=== PATIENT | female | born 1990 | race Caucasian/White ===

== ENCOUNTER 2022-07-04 14:02 | Outpatient (CLI) | payer BC, SELFPAY ==
--- NOTE | 2022-07-04 14:00 | CRLHL7_ITS ---
For Patients: As a result of the Cures Act, medical imaging exams and procedure reports are released immediately into your electronic medical record. You may view this report before your referring provider. If you have questions, please contact your health care provider. INDICATION: Evaluate size and dates TECHNIQUE: Ultrasound OB pelvis transvaginal. Real time neal scale imaging of the pelvis was performed. COMPARISON: None FINDINGS: Sonographic imaging demonstrates a single living intrauterine gestation. The embryo demonstrates a regular cardiac rate measuring 74 beats per minute. The embryo`s crown rump length measurement of 3.1 cm corresponds to a gestational age of 10 weeks 0 days with a sonographic due date of 01/30/2013. There is a normal appearing yolk sac. There are no gross abnormalities noted within the embryo at this early state of development. The placenta has not yet developed. The gestational sac has a normal appearance. 1.9 centimeter x 1.1 centimeter x 2.8 cm subchorionic hemorrhage the amount of fluid within the sac appears appropriate for gestational age. The cervix is closed. The myometrium appears normal. The ovaries are of normal size. There are no suspicious fluid collections noted in the cul-de-sac. IMPRESSION: Viable intrauterine . Gestational age calculated at 10 weeks 0 days with a sonographic due date of measurements consistent with. 1.9 centimeter x 1.1 centimeter x 2.8 centimeter subchorionic hemorrhage Dictated by Humphrey Schilling MD @ 07/04/2022 8:42:27 PM (Electronically Signed)
== END 2022-07-04 14:03 | disposition home or self-care (01) ==
LOC: US 14:04
PROVIDERS: PCP Family Medicine; Visit Provider Advanced Practice Midwife
DX: Z34.91 Encounter for supervision of normal pregnancy, unspecified, first trimester (principal); O20.9 Hemorrhage in early pregnancy, unspecified; Z3A.10 10 weeks gestation of pregnancy
CPT/HCPCS: 76817; 86592; 86703; 86762; 86787; 86803; 86850; 86900; 86901; 87086; 87340; 87491; 87591

== ENCOUNTER 2022-07-04 15:33 | Outpatient (CLI) | payer BC, SELFPAY ==
[2022-07-04 20:59] LABS: Hepatitis B Surface Antigen* Negative (Negative)
[2022-07-04 21:10] LABS: HIV 1/2/P24 Combo Screen* Negative (Negative)
[2022-07-04 21:16] LABS: Hepatitis C Virus Antibody* Negative (Negative)
[2022-07-04 22:15] LABS: Chlamydia DNA Amplified* NOT DETECTED (No Detected); GC DNA Amplified* NOT DETECTED (No Detected)
[2022-07-06 23:44] LABS: Varicella-Zoster Virus Ab, IgG >4000.0 IV
[2022-07-07 01:42] LABS: Rapid Plasma Reagin (RPR) Non Reactive (Non Reactive)
== END 2022-07-04 15:34 | disposition home or self-care (01) ==
PROVIDERS: PCP Family Medicine; Visit Provider Advanced Practice Midwife
DX: Z34.91 Encounter for supervision of normal pregnancy, unspecified, first trimester (principal)
CPT/HCPCS: 86592; 86703; 86762; 86787; 86803; 86850; 86900; 86901; 87086; 87340; 87491; 87591

== ENCOUNTER 2022-09-18 12:04 | Outpatient (CLI) | payer BC, SELFPAY ==
--- NOTE | 2022-09-18 12:15 | CRLHL7_ITS ---
For Patients: As a result of the Century Cures Act, medical imaging exams and procedure reports are released immediately into your electronic medical record. You may view this report before your referring provider. If you have questions, please contact your health care provider. INDICATION: Evaluate anatomy. COMPARISON: 07/04/2022 TECHNIQUE: Real time neal scale imaging of the fetus was performed as well as color Doppler analysis of the umbilical vessels. FINDINGS: Sonographic imaging demonstrates a single living intrauterine gestation. Fetus demonstrates a regular cardiac rate of 150 beats per minute. Fetus has a variable position. The placenta lies posteriorly without evidence of placenta previa. The edge of the placenta is located 5.1 cm from the internal cervical os. Amniotic fluid volume appears normal. Single deepest vertical pocket: 4.6 cm. The cervix is closed and measures 3.9 cm in length. The composite ultrasound gestational age is calculated at 20 weeks 6 days with an estimated sonographic due date of 01/30/2023. The estimated weight is 406 grams which lies at the 64th %. The following biometric measurements were obtained: Biparietal diameter: 4.8 cm/20 weeks 3 days 33rd% Head circumference: 17.8 cm/20 weeks 2 days 18th% Abdominal circumference: 16.9 cm/21 weeks 6 days 75th% Femur length: 3.4 cm/20 weeks 5 days 37th% The HC/AC ratio measures: 1.06 range (1.06-1.25) On anatomic survey, there is a normal appearance of the cerebral ventricles, cavum septi pellucidi, cisterna magna and cerebellum. The nose, lips, and facial profile appear normal. The cervical, thoracic and lumbar spine are well visualized and appear normal. There is a normal four-chamber heart view and the left and right ventricular outflow tracts appear normal. The diaphragm and stomach appear normal. The kidneys and bladder also appear normal. There is a normal three-vessel cord and cord insertion site. The four extremities appear normal. IMPRESSION: Normal OB ultrasound exam with concordance of clinical and sonographic dating. No intrinsic abnormalities noted on anatomic survey. Dictated by Humphrey Guajardo MD @ 09/19/2022 10:37:10 AM (Electronically Signed)
== END 2022-09-18 12:05 | disposition home or self-care (01) ==
LOC: US 12:05
PROVIDERS: PCP Family Medicine; Visit Provider Advanced Practice Midwife
DX: Z34.92 Encounter for supervision of normal pregnancy, unspecified, second trimester (principal); Z3A.20 20 weeks gestation of pregnancy
CPT/HCPCS: 76805

== ENCOUNTER 2023-01-04 08:20 | Outpatient (CLI) | payer BC, SELFPAY ==
[2023-01-05 13:18] LABS: Strep B DNA Probe NEGATIVE (Negative)
[2023-01-05 13:33] LABS: Strep B Pen/Amox Allergy No
== END 2023-01-04 08:21 | disposition home or self-care (01) ==
LOC: NFLDREF 08:20
PROVIDERS: PCP Family Medicine; Visit Provider Advanced Practice Midwife
DX: Z34.93 Encounter for supervision of normal pregnancy, unspecified, third trimester (principal); Z3A.36 36 weeks gestation of pregnancy
CPT/HCPCS: 87081; 87653

== ENCOUNTER 2023-01-23 05:05 | Inpatient (IN) | payer BC, SELFPAY ==
[2023-01-23] VITALS (23 sets, daily range): BP systolic 100–167; BP diastolic 66–126; PULSE 74–114; RESP 16–17; TEMP 36.4–37.2; O2SAT 97–99; BMI 37.9
[2023-01-23] MEDS: LACTATED RINGERS 1000 ML 1,000 ML 999 ML IV (05:30)
[2023-01-23 05:34] LABS: Basophils Absolute Auto 0.03 K/uL (0.00-0.30); Basophils Percent Auto 0.3 % (0.0-3.0); Eosinophils Absolute Auto 0.13 K/uL (0.00-0.50); Eosinophils Percent Auto 1.3 % (0.0-7.0); Hematocrit 35.7 % (33.0-51.0); Hemoglobin* 12.1 gm/dL (12.0-16.0); Immature Granulocytes Abs Auto 0.05 K/uL (0.00-0.30); Immature Granulocytes Pct Auto 0.5 %; Lymphocytes Percent Auto 22.7 % (20-44); Mean Corpuscular HGB Conc 34 gm/dL (32-36); Mean Corpuscular Hemoglobin 32 pg (26-34); Mean Corpuscular Volume 93 fL (80-100); Monocytes Percent Auto 9.8 % (0.0-11.0); Neutrophils Absolute Auto 6.34 K/uL (1.7-7.0); Neutrophils Percent Auto 65.4 % (42.0-72.0); Platelet Count* 177 K/uL (140-440); RDW Coefficient of Variation % 12.2 % (11.5-15.5); Red Blood Count 3.83 m/uL (4.00-5.20)
[2023-01-23 05:43] LABS: Slide Review Reflex No
[2023-01-23] MEDS: LACTATED RINGERS 1000 ML 1,000 ML IV (06:47)
--- NOTE | 2023-01-23 07:23 | P.LDBA_ITS ---
Subjective History of Present Illness Narrative: Patient is being admitted to Labor and Delivery for repeat delivery. She is a 32 year old at 39 weeks gestation. Specific Issues/Plans Spouse: Calvin. Daughter: Amado. Baby: Boy! Saul 1. Previous section, planning repeat (PCS for arrest of dilation and chorio), prefers NDP for repeat c/s * Surgical request submitted on 12/25/22 for RLTCS on 01/23/23 w/ NDP 2. Asthma, albuterol PRN 3. Multiple Mood Disorders: OCD, ADHD, Anxiety/Depression - seeing Dr. Vega for med management and therapy * Previous records indicate psych hx much more involved than pt implied, including hx of suicide attempt/overdose with tramadol, abusing her prescription medication (Previous ADHD meds switched to patch form so it could not be abused), and heavy alcohol use. 4. IBS 5. Hx of Alcohol Dependence and THC use, remote per pt, denies current use 6. Hx of Abuse, not current 7. Hx GDM -diet controlled (last 1hr GTT was 242) * HgbA1c: 5.2 at NOB * 20wk GTT: 116 * 28 week GTT: 135 8. Ringworm right breast 12/07/2022 * Antifungal cream twice daily * 12/15: Multiple spots on breasts bilaterally and on her abdomen, suspect pityriasis rosea. Discussed with MFM, recommend derm appointment to confirm * Derm said PUPPS 9. Mild anemia: 12/25/2022 at 34 weeks 6 days: hgb 10.8 * Start ferrous sulfate 1 tab p.o. every other day with food. 10. Pupps per patient, dx by Dermatology Managing with creams, hydrocortisone has worked the best COVID: vaccinated Flu: Tdap: 11/20/22 Her full history and physical was dictated by Dr. Serna on 01/10/2023. She reports no changes. Please see this for details. OB - Problem Based A/P Additional Plan (1) Previous delivery affecting : Status: Acute Plan Repeat delivery today. Delivery/Labor/Induction Plan Plan: Section OB Exam Physical Exam Vital signs: Temp Pulse BP Pulse Ox 98.9 F 82 122/82 99 01/23/23 05:20 01/23/23 05:19 01/23/23 05:19 01/23/23 05:20 Narrative: General: Pleasant, no acute distress Heart: Regular rate and rhythm, no murmur or gallop Lungs: Clear to auscultation bilaterally Abdomen: Soft, nontender, gravid, cephalic lie
[2023-01-23] MEDS: CEFAZOLIN 1 GM inj 3 GM IVP (07:30)
[2023-01-23] MEDS: KETOROLAC 30 MG/ML inj IVP ×3 (07:54→19:59)
[2023-01-23] MEDS: LACTATED RINGERS 1000 ML 1,000 ML 125 ML IV ×2 (07:55→09:30)
--- NOTE | 2023-01-23 08:00 | SUR.OPER ---
Surgeon denied offer to send the placenta/specimen.
--- NOTE | 2023-01-23 08:18 | PM.OBPRCCS ---
Procedure Date of procedure: 01/23/23 Pre-op diagnosis: 1. 39 weeks gestation. 2. Previous , desires repeat Post-op diagnosis: same Procedure Done: Global Will [facility] bill your pro fee for this procedure?: Yes Blood Loss Measurement Type: QBL (396) Bakri Used: No IV fluids (mL): 2,000 Surgeon: Dr. Sarina Arnold MD Hay Buckler: GAB Jerry Anesthesia type: Spinal Findings: 1. Male infant, cephalic presentation, Apgars of 6 and 8, weight 8 lb, 1 oz 2. Focal filmy adhesions of serosa and right lower uterine segment. Otherwise normal appearance to uterus, bilateral tubes and ovaries. Procedure Description: Patient was taken to the operating room with IV running. She received cefazolin in preoperative prophylaxis. Spinal anesthesia had previously been administered. Noel catheter was inserted. She was prepped and draped in the usual sterile fashion. Anesthesia was tested and found to be adequate. A low-transverse skin incision was made with a scalpel and carried through to the underlying layer of fascia with the scalpel. The subcutaneous fat was dissected off the underlying fascia with Bovie. The fascia was nicked in the midline with a scalpel, and this incision was extended laterally with scissors. The rectus muscles were in the midline. There were dissected bluntly off the underlying rectus muscles, and sharply in the midline. Peritoneum was identified and entered bluntly. Bovie was used to widen this opening laterally. Howie O retractor was inserted and tightened down, providing excellent visualization of the lower uterine segment. The serosal adhesion along the right lower uterine segment was lysed with Bovie. The bladder reflection was found to be well below the planned site for hysterotomy. Low-transverse uterine incision was made with a scalpel. Incision was widened bluntly. The infant's head was grasped through the hysterotomy and delivered with the help of fundal pressure. The remainder of the body delivered without incident. Cord was clamped and cut after 30 seconds. was handed off to attending nurses. The placenta was delivered manually after traction on the cord did not result in placental delivery. The uterus was cleaned of all clots and debris with the dry lap pad. The hysterotomy was reapproximated with 0 Vicryl in a running, locked fashion. The adnexa were examined and noted to be normal in appearance. The cul-de-sac and gutters were cleansed with dampened laparotomy sponge, removing any further clots and debris. The Howie O retractor was removed. The hysterotomy was reexamined and found to be hemostatic. The peritoneum was reapproximated with 2 0 Vicryl in a running fashion. The rectus muscles were examined and found to be hemostatic. The fascia was reapproximated with 0 Vicryl in a running fashion. Subcutaneous fat was irrigated and Bovie used on oozing vessels. The subcutaneous fat was reapproximated with 2 0 plain gut suture in an interrupted fashion. The skin was closed with a subcuticular stitch of 4-0 Monocryl. Surgical glue was applied above this. Patient tolerated procedure well was taken to recovery area in stable condition. Complications: None Condition: stable Disposition: floor [place] Infant total score - 1 minute: 5 total score - 5 minute: 6 total score - 10 minute: 8
--- NOTE | 2023-01-23 08:52 | W.ANESCHARGE ---
Anesthesia Charges Start Date/Time Anesthesia Start Date: 01/23/23 Anesthesia Start Time: 07:20 Stop Date/Time Anesthesia Stop Date: 01/23/23 Anesthesia Stop Time: 08:34
--- NOTE | 2023-01-23 10:12 | W.PM.NB ---
Nerve Block Nerve Block Time Seen by Provider: : Date Seen: 01/23/23 Type of block requested by surgeon for post-operative analgesia: TAP Side: bilateral Time out performed: Yes Verification of patient name: Yes Verification of date of : Yes Site marking: site marked Name of person performing procedure: Lucero Gonsales Continuous monitoring Was continuous monitoring of O2 sat, B/P, clinical research monitor, recorded every 15 minutes?: Yes Procedure Checklist: sterile prep, needles and gloves Ultrasound guided. Images saved: Yes Medications given in 5ml increments after negative aspiration: Marcaine %: 0.25 mL: 30 and Exparel mL: 10 Patient tolerated procedure well: Yes Block Charges Block Charge (with Pro Fee): TAP Bilateral Use of Ultrasound Machine for Block: Yes- US Guidance/pain block
[2023-01-23] MEDS: ACETAMINOPHEN 500 MG TABLET 1000 MG PO ×2 (13:00→19:13)
[2023-01-23] MEDS: diphenhydrAMINE 50 MG/ML inj 12.5 MG IVP (13:00)
[2023-01-24] VITALS (13 sets, daily range): BP systolic 113–125; BP diastolic 77–81; PULSE 72–86; RESP 16–18; TEMP 36.5–36.9; O2SAT 97–100
[2023-01-24] MEDS: ACETAMINOPHEN 500 MG TABLET 1000 MG PO ×4 (01:02→19:21)
[2023-01-24] MEDS: KETOROLAC 30 MG/ML inj IVP ×2 (02:01→08:23)
[2023-01-24 07:19] LABS: Hemoglobin* 10.8 gm/dL (12.0-16.0)
[2023-01-24] MEDS: DOCUSATE SODIUM 100 MG CAPSULE PO (08:24)
[2023-01-24] MEDS: OXYCODONE 5 MG TABLET PO ×4 (09:52→22:46)
[2023-01-24] MEDS: IBUPROFEN 600 MG TABLET PO ×2 (14:08→20:36)
--- NOTE | 2023-01-24 15:10 | P.OBPN_ITS ---
OB - PN:Subj Subjective Date Seen: 01/24/23 Patient comments OB post-: no complaints, pain well controlled, tolerating diet and flatus present [place] status: and doing well [place] feeding status: exclusively Narrative: The patient feels well.? The pain is well controlled with current medications.? She has no new complaints.? Urinary output is adequate and she is voiding w ithout difficulty.? Has a good appetite, is tolerating a general diet, is passing flatus, and has not had a bowel movement.? Has scant amount of rubra lochia.? She is ambulating well.? OB - PN: Obj Exam Physical Exam: Vital signs: Temp Pulse Resp BP Pulse Ox O2 Del Method 97.7 F 86 16 125/78 97 Room Air 01/24/23 13:03 01/24/23 13:03 01/24/23 13:03 01/24/23 13:03 01/24/23 13:03 01/24/23 13:03 Narrative: GENERAL APPEARANCE:? normal affect, alert, no distress? MOOD:? appropriate? CHEST:? clear to auscultation and percussion? HEART:? regular rate and rhythm? ABDOMEN:? soft, non-tender the uterine fundus is 2 cm Below Umbilicus, Midline and is appropriate for the stage of recovery. Incision well approximated without edema, redness, warmth, or drainage. Glue closure intact.? EXTREMITIES:? normal and no edema? Urinary Catheter Management: Urethral: Cath placed during this visit: yes, but has since been removed by the nurse Reason for continuing: surgical procedure Insertion date: 01/23/23 Insertion time: 07:34 Removal date: 01/23/23 Removal time: 14:11 OB - PN: Obj Data Labs Labs: Laboratory Results - last 24 hr 01/24/23 06:54 Hgb 10.8 L OB - PN: A/P Delivery Assessment and Plan (1) Previous delivery affecting : Status: Acute (2) Lactating mother: Status: Acute (3) care following delivery: Status: Acute Plan day: 1 Plan: routine care Comments: Anticipate discharge home tomorrow or the next day per patient preference.
[2023-01-24] MEDS: LANOLIN CREAM 1 APPLIC TOPICAL (19:47)
[2023-01-25] MEDS: ACETAMINOPHEN 500 MG TABLET 1000 MG PO ×2 (01:21→07:41)
[2023-01-25 02:16] VITALS: BP 118/82; PULSE 68; RESP 16; TEMP 36.5; O2SAT 98
[2023-01-25] MEDS: OXYCODONE 5 MG TABLET PO ×2 (04:01→08:46)
[2023-01-25] MEDS: IBUPROFEN 600 MG TABLET PO (04:02)
--- NOTE | 2023-01-25 07:23 | PM.OBDSVD1 ---
DS: Providers Provider Time Seen by Provider: : Date Seen: 01/25/23 Date of admission: 01/23/23 05:05 Primary care physician: Kimberly Lord MD Admitting Clinician: Sarina Arnold MD Attending Physician on discharge: Sarina Arnold MD Date of Discharge: 01/25/23 DS: Diagnosis Discharge Diagnosis (1) care following delivery: Status: Acute (2) Lactating mother: Status: Acute (3) History of panic attacks: Status: Acute (4) History of suicide attempt: Status: Acute (5) History of substance use disorder: Status: Acute (6) Generalized anxiety disorder: Status: Chronic (7) Depression: Status: Chronic Problem details: Hx OD. 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 ?Afebrile GENERAL APPEARANCE: ?normal affect, alert, no distress MOOD: ?appropriate HEENT: normocephalic, neck supple, full ROM CHEST: ?Symmetrical chest wall movement. ?Normal respiratory effort. ?Clear to auscultation HEART: ?regular rate and rhythm ABDOMEN: ?soft, non-tender. Uterine fundus is firm, at Umbilicus, Midline and is appropriate for the stage of recovery. ?Bowel sounds present. EXTREMITIES: ?normal and trace edema SKIN: warm, dry. ? ?Incision clean/dry/well approximated. ?No signs of infection noted. Const: Vital Signs, click to edit/add: Vital Signs - 24 hr 01/24/23 07:30 01/24/23 08:00 01/24/23 13:03 Temperature 97.9 F 97.7 F Pulse Rate [Pulse Oximeter] 84 86 Respiratory Rate 18 18 16 Blood Pressure [Ri ght Arm] 118/77 125/78 Pulse Oximetry 99 97 Oxygen Delivery Me thod Room Air Room Air 01/24/23 19:33 01/25/23 02:16 Temperature 98.2 F 97.7 F Pulse Rate [Pulse Oximeter] 72 68 Respiratory Rate 16 16 Blood Pressure [Ri ght Arm] 117/81 118/82 Pulse Oximetry 100 98 Oxygen Delivery Me thod Room Air Room Air OB - DS: Summary Hospital Course Hospital Course: Travis is a 32 y.o. G 2 P 2 who was admitted to L & D for repeat . ?She had an uncomplicated . ? The patient feels well. ?The pain is well controlled with current medications. ?She has no new complaints. ?She is breast feeding and reports things are going well.? the patient has done well.? Vitals have been stable.? She has remained afebrile.? Has a good appetite, is tolerating a general diet. ?She is voiding without difficulty.? She is passing gas and has had a bowel movement.? She is ambulating and denies any dizziness.? Has Small amount of rubra lochia. She is planning mini pill for prevention. Problems: none plan: Discharge home with baby. Follow up in 2 weeks and 6 weeks. , may follow up with if needed Peripartum Data Infant delivery method: Repeat Section Procedures: Procedures Operation Date: 01/23/23 07:15 Actual Procedure Side Surgeon p Repeat Section Sarina Arnold MD complications: none Infant Gender: Male Discharge Plan: Home Status at Discharge Functional status at discharge: independent ambulation Overall status at discharge: patient is progressing back to baseline Time Spent with Patient Time attestation: Total time spent providing and/or coordinating discharge services: Time spent: Less than 30 minutes Discharge Plan Discharge Disposition: Home, Self-Care Date of Admission: 01/23/23 05:05 Attending Provider on Discharge: Luciana Myrick Primary Care Provider: Kimberly Lord Condition: Stable Anticipated Discharge Date/Time: 01/25/23 10:00 Discharge Medications: New docusate sodium 100 mg Capsule 100 mg PO BID PRNQty: 100 0RF Rx Instructions: Take 1 cap 1-2 times a day as needed for constipation ibuprofen 600 mg Tablet 600 mg PO Q6H PRN (Reason: Pain) Qty: 60 0RF oxycodone 5 mg Tablet 5 - 10 mg PO Q4H PRN (Reason: Pain) Qty: 20 0RF Continued vilazodone [Viibryd] 40 mg tablet 40 mg PO QDAY Rx Instructions: must administer with a meal/food DHA 200 mg capsule 200 mg PO DAILY cholecalciferol (vitamin D3) 75 mcg (3,000 unit) tablet 75 mcg PO QDAY PRN metoclopramide HCl [Reglan] 10 mg tablet 10 mg PO Q6H PRN (Reason: headaches) Qty: 60 0RF Rx Instructions: Take at onset of headaches with Tylenol. If minimal improvement after 6 hours, may take another dose. albuterol sulfate 90 mcg/actuation HFA aerosol inhaler 1 puff inhalation Q4-6H PRN (Reason: shortness of breath or wheezing) Qty: 8.5 0RF Discontinued ferrous sulfate [Feosol] 325 mg (65 mg iron) tablet 325 mg PO Q OTHER DAY Discharge Orders: Discharge Order (Routine); Ordered 01/25/23 Ordered By: Luciana Myrick Patient Education: OB Over the Counter Medication Information, OB /Breast Feeding Additional Instructions: Follow up in 2 weeks and 6 weeks Activity Level: Activity as Tolerated Discharge Diet: Regular Follow Up Appointments: Kimberly Lord MD [Primary Care Provider] - Forms: [facility] Info Instructions
[2023-01-25 07:49] VITALS: BP 117/83; PULSE 80; RESP 16; O2SAT 98
== END 2023-01-25 10:50 | disposition home or self-care (01) | DRG 540 ==
PROVIDERS: Admitting Provider Obstetrics & Gynecology; PCP Family Medicine; Visit Provider Obstetrics & Gynecology
PROC: 10D00Z1 Extraction of Products of Conception, Low, Open Approach (ICD-10-PCS; CPT 59514; principal; 2023-01-23 07:15)
DX: O34.211 Maternal care for low transverse scar from previous cesarean delivery (principal); O24.420 Gestational diabetes mellitus in childbirth, diet controlled; O99.344 Other mental disorders complicating childbirth; F41.1 Generalized anxiety disorder; F41.8 Other specified anxiety disorders; F42.9 Obsessive-compulsive disorder, unspecified; F90.9 Attention-deficit hyperactivity disorder, unspecified type; Z91.51 Personal history of suicidal behavior; F10.21 Alcohol dependence, in remission; O26.86 Pruritic urticarial papules and plaques of pregnancy (PUPPP); J45.909 Unspecified asthma, uncomplicated; Z3A.39 39 weeks gestation of pregnancy; Z37.0 Single live birth; G89.18 Other acute postprocedural pain
CPT/HCPCS: 01961; 36415; 64488; 76942; 85018; 85025; 86850; 86900; 86901; A9270; C9290; J0665; J0690; J1200; J1885; J2274; J2371; J2405; J2590; J7120

== ENCOUNTER 2023-02-26 13:39 | Outpatient (CLI) | payer BC, SELFPAY | END 2023-02-26 13:40 | disposition home or self-care (01) | LOC: NFLDREF 02-28 01:59 | PROVIDERS: PCP Family Medicine; Referring Provider Family Medicine; Visit Provider Nurse Practitioner Family | DX: Z79.899 Other long term (current) drug therapy (principal) | CPT/HCPCS: 80053; 82306; 84443 ==

== ENCOUNTER 2023-03-07 11:39 | Outpatient (CLI) | payer SELFPAY | END 2023-03-07 11:40 | disposition home or self-care (01) | LOC: NFLDREF 11:40 | PROVIDERS: PCP Family Medicine; Visit Provider Registered Nurse | DX: Z39.2 Encounter for routine postpartum follow-up (principal) | CPT/HCPCS: 87086 ==

== ENCOUNTER 2023-11-15 07:30 | Outpatient (RCR) | payer BC, SELFPAY | END 2023-12-18 09:48 | disposition home or self-care (01) | PROVIDERS: PCP Family Medicine; Visit Provider Family Medicine | DX: M54.9 Dorsalgia, unspecified (principal); Z51.89 Encounter for other specified aftercare | CPT/HCPCS: 97110; 97140; 97161 ==

== ENCOUNTER 2024-05-08 08:38 | Outpatient (CLI) | payer BC, SELFPAY ==
--- OUTSIDE RECORDS SUMMARY | 2024-05-08 08:41 | XMS_ITS ---
Author Organization [facility] Address [address] [place] [address] Care Team Providers Care Kayaking Instructor Name Role Phone Unavailable Unavailable Unavailable Surgery Details Not on file Complications Check Surgery Details section. Procedure Estimated Blood Loss Check Surgery Details section. Procedure Findings Check Surgery Details section. Procedure Specimens Taken Check Surgery Details section.
--- OUTSIDE RECORDS SUMMARY | 2024-05-08 08:41 | XMS_ITS | Referral Summary ---
Author Organization [facility] Address [address] [place] [address] Care Team Providers Care Test Lead Application Testing Name Role Phone Jose Alberto Barksdale APRN, C.N.P. Primary Care Provid er Source Comments Patient records contain information from all sites at [facility]. For routine questions regarding patient records, call [phone] during business hours, M-F 8:00 AM - 5:00 PM Central Time. Record requests for emergency care only can be directed to [phone] at any time.[facility] Encounters Date Type Department Care Team Description 04/22/2024 Orders Only [facility] PCP TH MNT Jose Alberto Barksdale APRN, C.N.P. Screening Lipid from Last 3 Months Allergies No known active allergies Medications albuterol (PROAIR HFA) 90 mcg/actuation inhaler ProAir HFA 90 mcg/inh inhalation aerosol See Instructions, 2 puff(s) Inhalation as needed for shortness of breath and as directed 15 minutes before exercise, 1 each, 2 Refill(s) 7 Active fexofenadine (MOY ALLERGY) 180 mg tablet Take 1 tablet by mouth daily as needed. 3 Active vilazodone (VIIBRYD) 40 mg tablet Take 1 tablet by mouth daily. 5 Active methylphenidate (DAYTRANA) 30 mg/[address] 1 patch on the skin every morning. 30 patch 9 Active Additional Information Patient not taking.Reported on 10/23/2022 Active Problems Problem Noted Date Diagnosed Date Overdose Drug Personal History 07/16/2018 Overview (07/16/2018): Overdose of tramadol. 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 Has been stable on tran Major Depressive Disorder, Recurrent, Unspecifie d 12/12/2011 Seizure 12/09/2011 Asthma NOS 11/30/2011 Anxiety 06/01/2009 Immunizations Name Administration Dates Next Due DTaP (Infanrix, [employer]) 07/12/1993,11/1991,05/16/1989,02/14/1989,1988 HepB, Unspecified 10/24/2000,07/04/2000,05/30/20 00 Hib, Unspecified 02/15/1993 MMR 07/04/2000,04/17/1990 PPSV23 11/03/2015 Polio, Unspecified 07/12/1993,08/22/1991, 989,1988 Td (Adult), adsorbed 05/30/2000 Tdap 09/29/2020,02/27/2019,08/20/2009 Social History Tobacco Use Types Packs/Day Years Used Date Smoking Tobacco: Every Day Cigarettes 0.3 17.9 Started: 06/18/2006 Smokeless Tobacco: Never Tobacco Cessation:Ready to Q uit: Not Asked; Counseling Given: Not Answered Alcohol Use Standard Drinks/Week Comments Yes 0 (1 standard drink = 0.6 oz pur e alcohol) PHQ-2 Answer Date Recorded PHQ-2 Score 2 11/20/2018 Nutrition Answer Date Recorded Nutrition: EVOO Fat Source 13 01/12 Nutrition: Servings of Fruits/Vegetables per Day Not on file 01/13/2020 Dental Answer Date Recorded Dental: Regular Dentist Unknown 08/20/19 21 Comments Unknown Sex and Gender Information Value Date Recorded Sex Assigned at Female 07/08/2018 3:12 PM [employer] Legal Sex Female 4:28 AM [employer] Gender Identity Female 07/08/2018 3:12 PM [employer] Sexual Orientation Straight 07/08/2018 3: 12 PM [employer] Last Filed Vital Signs Vital Sign Reading Time Taken Comments Blood Pressure 108/72 10/23/2022 1:58 PM CDT Pulse 89 10/23/2022 1:58 PM CDT Temperature 36.8 C (98.2 F) 10/23/2022 1:58 PM CDT Respiratory Rate 18 07/08/2018 3:24 PM [employer] Oxygen Saturation 99% 10/23/2022 1:58 PM CDT Inhaled Oxygen Concentration - - Weight 68.9 kg (152 lb) 07/08/2018 3:24 PM [employer] Height 155 cm (5' 1.02) 07/08/2018 3:24 PM [employer] Body Mass Index 28.7 07/08/2018 3:24 PM [employer] HIRE Plan of Treatment Not on file Procedures Procedure Name Priority Date/Time Associated Diagnosis Comments PATHOLOGY [employer]IVE [employer] CYTOLOGY Routine 11/03/2015 12:00 AM CDT from Last 3 Months or Most Recently Relevant to Health Maintenance Results * Pathology [employer] Cytology (11/03/2015 12:00 AM CDT) 11/03/2015 Narrative [facility] - 11/10/2015 1:35 PM CDT [facility] in [address] [place] [address] Patient Name: DOLLY MORALES Collected: 11/03/2015 Address: City/State/Zip: [address] [place] [id number] Received: Reported: 11/04/2015 11/10/2015 Soc. Sec. #: /Age/Sex 1990 (Age: 25) F Physician(s): IFTIKHAR RAYMUNDO APRN Copy To: [facility] [id number] [address] [place] [address] CYTOPATHOLOGY [employer] REPRESENTAT[employer] REPORT FINAL CYTOLOGIC DIAGNOSIS Pap Smear - ThinPrep: NEGATIVE FOR INTRAEPITHELIAL LESION OR MALIGNANCY REACTIVE/REPARATIVE CHANGES. ENDOCERVICAL CELLS/COMPONENT PRESENT. HISTORY OF ABNORMAL CYTOLOGY NOTED. SATISFACTORY SPECIMEN FOR EVALUATION. This specimen required a physician interpretation under CLIA 1987 Electronically Signed Out By ddg/11/10/2015 NATHAN GOMEZ M.D. LISA AGUAYO(ASCP) The Pap test is a screening procedure and, as such, is subject to both false positive and false negative results as evidenced by published data. It is not a diagnostic test and results should be interpreted in the context of the patient's history and other clinical findings. Obtaining periodic Pap tests may help to minimize the consequences of any false negatives that may occur. SPECIMEN(S) RECEIVED: Pap Smear - ThinPrep CLINICAL HISTORY: Date of Last Menstrual Period: 10/13/2015 Hormonal History: No hormonal therapy Other Clinical Conditions: HPV TYPING REQUESTED: IF ASCUS Adelina Raymundo APRN C.N.P., M.S. LAB P AP COPATH ORDERABLES Final Result [facility] from Last 3 Months or Most Recently Relevant to Health Maintenance Insurance [facility] Care Teams Test Lead Application Testing Relationship Specialty Start Date End Date Jose Alberto Barksdale APRN, C.N.P. [address] [phone] [facility] - General 03/12/19
--- OUTSIDE RECORDS SUMMARY | 2024-05-08 08:41 | XMS_ITS | Encounter Summary ---
Author Organization [facility] Address [address] [place] [address] Care Team Providers Care Nut Sheller Name Role Phone Jose Alberto Barksdale APRN, C.N.P. Primary Care Provid er Encounter Details Date Type Department Care Team (Late st Contact Info) Description 04/22/2024 Orders Only [facility] MNT Jose Alberto Barksdale APRN, C.N.P. [address] [place] [phone] Screening Lipid Social History Tobacco Use Types Packs/Day Years Used Date Smoking Tobacco: Every Day Cigarettes 0.3 17.9 Started: 06/18/2006 Smokeless Tobacco: Never Alcohol Use Standard Drinks/Week Comments Yes 0 [...] Sex Assigned at Female 07/08/2018 3:12 PM MAILROOM COORDINATOR Legal Sex Female 4:28 AM MAILROOM COORDINATOR Gender Identity Female 07/08/2018 3:12 PM MAILROOM COORDINATOR Sexual Orientation Straight 07/08/2018 3: 12 PM MAILROOM COORDINATOR documented as of this encounter Plan of Treatment Scheduled Orders Name Type Priority Associated Diagnoses Orde r Schedule Lipid Panel Lab Routine Screening Lipid Expected: 05/06/2024, Expires: 10/19/2024 documented as of this encounter Visit Diagnoses Diagnosis Screening Lipid documented in this encounter Additional Health Concerns Assessment Noted Time PHQ-9 Depression Total Score: 8 07/08/19 19 3:09 PM MAILROOM COORDINATOR documented as of this encounter Care Teams Nut Sheller Relationship Specialty Start Date End Date Jose Alberto Barksdale, XOCHILT, C.N.P. [address] [phone] PCP - General 03/12/19 documented as of this encounter
--- OUTSIDE RECORDS SUMMARY | 2024-05-08 08:41 | XMS_ITS | Clinical Summary ---
Author Organization [facility] Address [address] [place] [address] Care Team Providers Care Salad Counter Attendant Name Role Phone Jose Alberto Barksdale APRN C.N.PAndres Primary Care Provid er Source Comments Patient records contain information from all sites at [facility]. For routine questions regarding patient records, call [phone] during business hours, M-F 8:00 AM - 5:00 PM Central Time. Record requests for emergency care only can be directed to [phone] at any time.[facility] Allergies No known active allergies Medications albuterol [...] of adderall overuse. Has been stable on daytrana Major Depressive Disorder, Recurrent, Unspecifie d 12/12/2011 Seizure 12/09/2011 Asthma NOS 11/30/2011 Anxiety 06/01/2009 Encounters Date Type Department Care Team Description 04/22/2024 Orders Only [facility]NT Jose Alberto Barksdale, CRUISE DIRECTOR, C.N.P. Screening Lipid from Last 3 Months Immunizations Name Administration Dates Next Due DTaP (Infanrix, [employer]) 07/12/1993,11/1991,05/16/1989,02/14/1989,1988 HepB, Unspecified 10/24/2000,07/04/2000,05/30/20 00 Hib, Unspecified 02/15/1993 MMR 07/04/2000,04/17/1990 PPSV23 11/03/2015 Polio, Unspecified 07/12/1993,08/22/1991, 989,1988 Td (Adult), adsorbed 05/30/2000 Tdap 09/29/2020,02/27/2019,08/20/2009 Family History Medical History Relation Name Comments ADD Brother Jai Morales Not Diagnosed Anxiety disorder Brother Jai Morales Asthma Brother Jai Morales ADD Father Todd Morales Not Diagnosed Hyperlipidemia Father Todd Morales Taking Medica tion Heart disease Grandmother Maternal Alcohol abuse Maternal Grandfather Armond Yang Alcohol abuse Maternal Grandmother Patsy Yang Arthritis Maternal Grandmother Patsy Yang Asthma Maternal Grandmother Patsy Yang Asthma Mother Alie Guzman Cervical cancer Mother Alie Guzman Questionabl e ADD Paternal Grandmother Zandra Andrew Not [place] gnose Alcohol abuse Paternal Grandmother Zandra Morales Anxiety disorder Paternal Grandmother Zandra Morales Depression Paternal Grandmother Zandra Morales Asthma Sister 1 ADD Sister 2 Brandie Renae Asthma Sister 2 Brandie Renae Asthma Sister 3 Elaenor Morales Relation Name Status Comments Brother Jai Morales Father Todd Morales Alive Grandmother Maternal Maternal Grandfather Armond Yang Maternal Grandmother Patsy Yang Mother Alie Guzman Alive Paternal Grandmother Zandra Morales Sister 1 Alive Sister 2 Brandie Renae Sister 3 Eleanor Morales Social History Tobacco Use Types Packs/Day Years [...] Sex Assigned at Female 07/08/2018 3:12 PM METAL MOLD DRESSER Legal Sex Female 4:28 AM METAL MOLD DRESSER Gender Identity Female 07/08/2018 3:12 PM METAL MOLD DRESSER Sexual Orientation Straight 07/08/2018 3: 12 PM METAL MOLD DRESSER Last Filed Vital Signs Vital Sign Reading Time Taken Comments Blood Pressure 108/72 10/23/2022 1:58 PM CDT Pulse 89 10/23/2022 1:58 PM CDT Temperature 36.8 C (98.2 F) 10/23/2022 1:58 PM CDT Respiratory Rate 18 07/08/2018 3:24 PM METAL MOLD DRESSER Oxygen Saturation 99% 10/23/2022 1:58 PM CDT Inhaled Oxygen Concentration - - Weight 68.9 kg (152 lb) 07/08/2018 3:24 PM METAL MOLD DRESSER Height 155 cm (5' 1.02) 07/08/2018 3:24 PM METAL MOLD DRESSER Body Mass Index 28.7 07/08/2018 3:24 PM METAL MOLD DRESSER Plan of Treatment Health Maintenance Due Date Last Done Comments Depression Monitoring (PHQ-9) 1988 HIV Screening 1988 Hepatitis C Screening 1988 Lipid (Cholesterol) Screening 1988 Tobacco Cessation counseling 1988 Hepatitis A Vaccines (1 of 2 - Risk 2-dose series) 09/01/2007 Pneumococcal vaccine (0-64 years) (2 of 2 - PCV) 11/02/2016 11/03/2015 Asthma Management/Exacerbation Questionnaire (AMQ/AEQ) 11/29/2016 Asthma Control Test Questionnaire 12/11/2017 12/11/2016, 11/03/2015 Cervical/Vaginal Cancer Screening 11/02/2018 11/03/2015, 02/12/2013, 12/08/2011 Asthma Action Plan 07/09/2019 07/09/2018, 11/03/2015 Depression Monitoring (PHQ-9 for quality tracking) 06/18/2023 COVID-19 Vaccine ( season) 2024 03/06/2021, 02/13/2021 Influenza Vaccine (#1) 2024 07/04/2022 DTaP,Tdap,and Td Vaccines (10 - Td or Tdap) 11/20/2032 11/20/2022, 09/29/2020, 02/27/2019, Additional history exists IPV Vaccines Completed 07/12/1993, 11/1991, 02/14/1989, Additional history exists Hepatitis B Vaccines Completed 10/24/2000, 07/04/2000, 05/30/2000 HPV Vaccines Aged Out No longer eligi ble based on patient's age to complete this topic Procedures Procedure Name Priority Date/Time Associated Diagnosis Comments PATHOLOGY VIDEO POKER FLOORMAN CYTOLOGY Routine 11/03/2015 12:00 AM CDT from Last 3 Months or Most Recently Relevant to Health Maintenance Results * Pathology VIDEO POKER FLOORMAN Cytology (11/03/2015 12:00 AM CDT) 11/03/2015 Narrative [facility] LAB - 11/10/2015 1:35 PM CDT [facility] in [address] [place] [address] Patient Name: SUNG MORALES Collected: 11/03/2015 Address: City/State/Zip: [address] [place] [address] Received: Reported: 11/04/2015 11/10/2015 Soc. Sec. #: /Age/Sex 1990 (Age: 25) F Physician(s): IFTIKHAR RAYMUNDO APRN Copy To: [facility] [id number] [facility] [place] [address] CYTOPATHOLOGY VIDEO POKER FLOORMAN REPORT FINAL CYTOLOGIC DIAGNOSIS Pap Smear - ThinPrep: NEGATIVE FOR INTRAEPITHELIAL LESION OR MALIGNANCY REACTIVE/REPARATIVE CHANGES. ENDOCERVICAL CELLS/COMPONENT PRESENT. HISTORY OF ABNORMAL CYTOLOGY NOTED. SATISFACTORY SPECIMEN FOR EVALUATION. This specimen required a physician interpretation under CLIA 1987 Electronically Signed Out By ddg/11/10/2015 NATHAN GOMEZ M.D. AM Lisandrosteve AGUAYO(ASCP) The Pap test is a screening [...] HPV TYPING REQUESTED: IF ASCUS Adelina Raymundo APRN, C.N.P., M.S. LAB [facility] ORDER[facility] Final Result [facility] LAB from Last 3 Months or Most Recently Relevant to Health Maintenance Insurance [facility] Care Teams Salad Counter Attendant Relationship Specialty Start Date End Date Jose Alberto Barksdale APRN, C.N.P. [address] [place] [phone] PCP - General 03/12/19
== END 2024-05-08 08:39 | disposition home or self-care (01) ==
PROVIDERS: PCP Family Medicine; Visit Provider Family Medicine
DX: R53.83 Other fatigue (principal); R40.0 Somnolence; F32.A Depression, unspecified
CPT/HCPCS: 80053; 82306; 82607; 84443